=== PATIENT | female | born 1995 | race Hispanic/Latino ===

== ENCOUNTER 2024-10-31 08:33 | Emergency (ER) | payer SELFPAY | END 2024-10-31 09:27 | disposition home or self-care (01) | LOC: NAV ERS 08:33 | DX: S46.911A Strain of unspecified muscle, fascia and tendon at shoulder and upper arm level, right arm, initial encounter (principal); X50.0XXA Overexertion from strenuous movement or load, initial encounter; Y92.512 Supermarket, store or market as the place of occurrence of the external cause | CPT/HCPCS: 99283 ==

== ENCOUNTER 2025-08-03 11:15 | Emergency (ER) | payer OTHER ==
[2025-08-03 12:07] LABS: Glucose, Urine (Dipstick) Negative (Negative); Leukocyte Negative (Negative); Protein, Urine (Dipstick) Negative (Neg-Trace); Specific Gravity, Urine 1.020 (1.005-1.030)
[2025-08-03 12:12] LABS: Pregnancy Test - Urine (BHCG) Negative (Negative); Pregu Control Background? CLEAR/WHITE (CLR/WHITE); Pregu Control Bar Appear? YES (CONTROL BAR); RBC/HPF 0-3 HPF (0-3)
== END 2025-08-03 12:55 | disposition home or self-care (01) ==
LOC: NAV ERS 11:15
DX: M17.11 Unilateral primary osteoarthritis, right knee (principal); N91.2 Amenorrhea, unspecified
CPT/HCPCS: 81001; 81025; 99283